=== PATIENT | female | born 1985 | race Hispanic/Latino ===

== ENCOUNTER 2017-02-16 07:06 | Day surgery (SDC) | payer OTHER ==
[2016-04-10 12:39] VITALS: BMI 20.7
[2017-02-16] MEDS ORDERED: Lactated Ringer's 500 ML IV ONE (07:41)
[2017-02-16] MEDS ORDERED: Propofol 10 mg/ml Inj (20 ML) ONE (08:24)
[2017-02-16 09:09] VITALS: RESP 17; TEMP 97
[2017-02-16 09:19] VITALS: BP 99/65; PULSE 52; O2SAT 100
== END 2017-02-16 09:35 | disposition home or self-care (01) ==
LOC: H.ENDO 07:06
PROVIDERS: ATTEND Internal Medicine Gastroenterology
DX: K62.5 Hemorrhage of anus and rectum (principal); R10.32 Left lower quadrant pain; K64.1 Second degree hemorrhoids
CPT/HCPCS: 45378; 88305; J2001; J2704; J3010; J7120